=== PATIENT | male | born 1965 | race African-American/Black ===

== ENCOUNTER 2020-12-17 12:51 | Emergency (ER) | payer SELFPAY ==
[~2020-12-17] VITALS: Ht 182.9 cm; Wt 99.8 kg
[2020-12-17] MEDS ORDERED: IBUPROFEN 600MG TABLET PO ONE (13:15)
[2020-12-17] MEDS ORDERED: IBUP-2029 MT (17:03)
[2020-12-17] MEDS ORDERED: CYCL10TA7 MT (17:04)
[2020-12-17 17:20] VITALS: BP 159/98
== END 2020-12-17 17:23 | disposition home or self-care (01) ==
LOC: ER 14:23
DX: S00.83XA Contusion of other part of head, initial encounter (principal); S20.219A Contusion of unspecified front wall of thorax, initial encounter; V49.49XA Driver injured in collision with other motor vehicles in traffic accident, initial encounter; Y93.89 Activity, other specified; Y92.89 Other specified places as the place of occurrence of the external cause; Y99.8 Other external cause status
CPT/HCPCS: 70486; 71045; 93005; 99285